=== PATIENT | female | born 1995 | race Caucasian/White ===

== ENCOUNTER 2017-10-23 13:10 | Emergency (ER) | payer OTHER ==
[2017-10-23 13:17] VITALS: BP 114/84; PULSE 104; RESP 16; TEMP 97.9; O2SAT 97
--- NOTE | 2017-10-23 13:24 | EDPHY ---
H & P Stated Complaint: rolled r ankle Time Seen by Provider: 10/23/17 13:23 HPI/ROS: HPI: This is a 22-year-old female who presents with Chief Complaint: Rolled right ankle Location: Right ankle Quality: Rolled Duration: 2-3 days ago Signs and Symptoms: No bleeding, no radiation, no numbness, no weakness, no tingling, no incontinence, no decreased range of motion, + swelling, + pain Timing: Acute Severity: Moderate Context: Patient is a student at [employer] presents with complaints of rolling her ankle yesterday for the 2nd time. She complains swelling and tenderness over her right ankle lateral malleolus. Back in August she rolled her ankle as well and was given lace-up ankle brace. She placed ankle brace on yesterday but no improvement in symptoms. She has never had x-ray images of her ankle. She denies paresthesias/weakness/skin color changes. She is ambulatory with mild pain. She has not take any over-the- counter pain medication. Modifying Factors: Lace-up ankle brace Comment: ROS: see HPI Constitutional: No fever, no chills, no weight loss Eyes: No blurred vision Respiratory: No shortness of breath, no cough Cardiovascular: No chest pain Gastrointestinal: No nausea, no vomiting no diarrhea Genitourinary: No dysuria Extremities: No myalgias Neurologic: No weakness, no numbness Skin: No rashes Hematologic: No bruising, no bleeding MEDICAL/SURGICAL/SOCIAL HISTORY: Medical history: Generally healthy. Does not take any regular medications. Surgical history: Denies Social history: Student at [employer] CONSTITUTIONAL: Extremely pleasant adult white female, awake and alert, no obvious distress HEENT: Atraumatic and normocephalic, PERRL, EOMI. Tympanic membranes clear. Oropharynx clear, no exudate and moist pink mucosa. Airway patent. No lymphadenopathy. No meningismus. Cardiovascular: Normal S1/S2, regular rate, regular rhythm, without murmur rub or gallop. PULMONARY/CHEST: Symmetrical and nontender. Clear to auscultation bilaterally. Good air movement. No accessory muscle usage. ABDOMEN: Soft, nondistended, nontender, no rebound, no guarding, no peritoneal signs, no masses or organomegaly. No CVAT. EXTREMITIES: 2/2 DP and PT pulses, strength 5/5, Ankle: Plantar flexion to 50 , dorsiflexion to 20. Foot inversion to 35 degree. Mild tenderness/swelling Anterior talofibular ligament. No tenderness/swelling Calcaneofibular ligament , no tenderness/swelling posterior talofibular ligament, no tenderness/swelling posterior inferior tibiofibular ligament. Achilles tendon intact. no deformities , no clubbing, no cyanosis or edema. NEUROLOGICAL: no focal neuro deficits. GCS 15. SKIN: Warm and dry, no erythema. no rash. Good capillary refill. Source: Patient Exam Limitations: No limitations - Personal History LMP (Females 10-55): Extended Cycle BCP/Inj Current Tetanus/Diphtheria Vaccine: Yes - Medical/Surgical History Hx Asthma: No Hx Chronic Respiratory Disease: No Hx Diabetes: No Hx Cardiac Disease: No Hx Renal Disease: No Hx Cirrhosis: No Hx Alcoholism: No Hx HIV/AIDS: No Hx Splenectomy or Spleen Trauma: No Other PMH: denies - Social History Smoking Status: Never smoked Constitutional: Initial Vital Signs Temperature (C) 36.6 C 10/23/17 13:13 Heart Rate 104 H 10/23/17 13:13 Respiratory Rate 16 10/23/17 13:13 Blood Pressure 114/84 H 10/23/17 13:13 O2 Sat (%) 97 10/23/17 13:13 O2 Delivery Mode Room Air Allergies/Adverse Reactions: No Known Allergies Allergy (Unverified 10/23/17 13:12) Home Medications: Medication Instructions Recorded Nexplanon 10/23/17 Medical Decision Making - Diagnostics Imaging Results: Imaging Impressions Ankle X-Ray 10/23/17 13:24 Impression: Ankle sprain. Procedures: Procedure: Splint placement. A right walking boot was applied by the Emergency Room water treatment technician. After application of the splint I returned and re-examined the patient. The splint was adequately immobilizing the joint and distal to the splint the patient's circulation and sensation was intact. ED Course/Re-evaluation: Right ankle x-ray ordered, pack applied, Given ibuprofen 800 mg Suspect grade 2 ATFL ligament sprain. Will likely placed in walking boot with crutches. Rice therapy. No signs of neurovascular compromise/tenting of skin/compartment syndrome/ extremities and joints examined above and below area of concern and are neurovascularly intact. X-ray my read shows no acute fracture; dislocation. Soft tissue swelling noted over the lateral aspect. This patient was seen under the supervision of my secondary supervising physician. I evaluated care for this patient independently. Differential Diagnosis: Differential diagnosis includes but is not limited to ATFL ligament sprain, nerve injury, tibia fracture, fibula fracture, midfoot fracture. - Data Points Medications Given: Discontinued Medications Ibuprofen (Motrin) 800 mg PO EDNOW ONE Stop: 10/23/17 13:27 Last Admin: 10/23/17 13:55 Dose: 800 mg Departure - Departure Disposition: Home, Routine, Self-Care Clinical Impression: Ligamentous inflammation Grade 2 ankle sprain Qualifiers: Encounter type: initial encounter Laterality: right Qualified Code(s): S93.401A - Sprain of unspecified ligament of right ankle, initial encounter Condition: Good Instructions: Ankle Sprain (ED) Additional Instructions: Wear the walking boot while out of bed until pain free or seen by Orthopedics for follow-up. Take Tylenol 650 mg every 4 hours and/or Ibuprofen 600 mg every 8 hours with food as needed for pain. Apply ice for 30 minutes at a time; 2-3 times per day for the next 1-2 days. Follow up with Orthopedics in 2-4 weeks if symptoms persist or worsening at which time they will evaluate and recommend with you if conservative management versus adjuvant therapy like further imaging is indicated. The x-rays obtained in the emergency department today demonstrate no evidence of an obvious fracture. Referrals: Evan Gramajo MD [Medical Doctor] - As per Instructions
[2017-10-23] MEDS ORDERED: IBUPROFEN 800 MG TAB PO ONE (13:26)
== END 2017-10-23 14:18 | disposition home or self-care (01) ==
LOC: EDSEX 13:10
DX: S93.401A Sprain of unspecified ligament of right ankle, initial encounter (principal); M24.271 Disorder of ligament, right ankle; X58.XXXA Exposure to other specified factors, initial encounter
CPT/HCPCS: L4386